=== PATIENT | male | born 1970 | race Caucasian/White ===

== ENCOUNTER → 2018-06-14 | Outpatient (CLI) | payer BC ==
[~2018-06-14] MED LIST: FENO145T32 PO; LISI-170 PO; NAPR-685 PO
[2018-06-14 12:58] LABS: ALANINE AMINOTRANSFERASE 45 U/L (12-78); ALBUMIN 4.4 g/dL (3.4-5.0); ANION GAP 6 mmol/L (5-15); CALCIUM 9.4 mg/dL (8.5-10.1); CHLORIDE 106 mmol/L (98-107); CREATININE 1.21 mg/dL (0.7-1.3)
[2018-06-14 13:00] LABS: ALKALINE PHOSPHATASE 55 U/L (45-117); BILIRUBIN,TOTAL 0.5 mg/dL (0.2-1.0); TOTAL PROTEIN 8.2 g/dL (6.4-8.2)
== END | disposition home or self-care (01) ==
LOC: STAR 08:00
PROVIDERS: ATTEND Orthopaedic Surgery
DX: Z01.818 Encounter for other preprocedural examination (principal); S83.241A Other tear of medial meniscus, current injury, right knee, initial encounter; X58.XXXA Exposure to other specified factors, initial encounter; Y93.89 Activity, other specified; Y92.89 Other specified places as the place of occurrence of the external cause; Y99.8 Other external cause status
CPT/HCPCS: 36415; 80053

== ENCOUNTER 2018-06-20 12:32 | Day surgery (SDC) | payer BC ==
[~2018-06-20] VITALS: Ht 188 cm; Wt 104.0 kg
[~2018-06-20 12:32] MED LIST changes: +LIDOCAINE 1%-EPI 1:100K, 30ML ONE; +ROPIvacaine/PF 0.5%, 30 ML ONE
[2018-06-20 12:55] VITALS: BP 129/89
[2018-06-20] MEDS ORDERED: LACTATED RINGERS 1,000 ML IV SCH (12:55)
[2018-06-20] MEDS ORDERED: PROPOFOL 10 MG/ML, 20ML ONE (14:35)
[2018-06-20] MEDS ORDERED: CEFAZOLIN 1,000 MG ONE (14:35)
[2018-06-20] MEDS ORDERED: FENTANYL PF 250 MCG/5ML ONE (14:36)
[2018-06-20] MEDS ORDERED: MIDAZOLAM 1 MG/ML, 2ML ONE (14:36)
[2018-06-20] MEDS ORDERED: hydrALAzine 20 MG/ML, 1ML IV PRN (15:00)
[2018-06-20] MEDS ORDERED: KETOROLAC 30 MG/1 ML IV PRN (15:00)
[2018-06-20] MEDS ORDERED: DIAZEPAM 5 MG/ML, 2ML IVPush PRN (15:00)
[2018-06-20] MEDS ORDERED: MEPERIDINE/PF 25MG/0.5ML IVPush PRN (15:00)
[2018-06-20] MEDS ORDERED: ALBUTEROL SULFATE 2.5 MG/3 ML NPPB PRN (15:00)
[2018-06-20] MEDS ORDERED: LABETALOL 5MG/ML, 20ML IV PRN (15:00)
[2018-06-20] MEDS ORDERED: OXYcodone 5 MG/5 ML ORAL.SOL UDC PO PRN (15:00)
[2018-06-20] MEDS ORDERED: PROMETHAZINE 25 MG/ML, 1ML IV PRN (15:00)
[2018-06-20] MEDS ORDERED: ACETAMINOPHEN 325 MG TABLET PO PRN (15:00)
[2018-06-20] MEDS ORDERED: OXYcodone 5 MG/5 ML ORAL.SOL UDC ONE (15:26)
[2018-06-20] MEDS ORDERED: FENTANYL PF 100 MCG/2ML ONE (15:31)
[2018-06-20] MEDS: FENTANYL PF 100 MCG/2ML IV PRN ×2 (15:33→15:41)
[2018-06-20] MEDS ORDERED: HYDROmorphone 2 MG/ML, 1ML ONE (15:50)
[2018-06-20] MEDS: HYDROmorphone 2 MG/ML, 1ML IVPush PRN ×2 (15:53→16:01)
== END 2018-06-20 17:40 | disposition home or self-care (01) ==
LOC: OUT 12:32
PROVIDERS: ATTEND Orthopaedic Surgery
DX: S83.281A Other tear of lateral meniscus, current injury, right knee, initial encounter (principal); S83.241A Other tear of medial meniscus, current injury, right knee, initial encounter; M65.861 Other synovitis and tenosynovitis, right lower leg; X58.XXXA Exposure to other specified factors, initial encounter; Y93.89 Activity, other specified; Y92.89 Other specified places as the place of occurrence of the external cause; Y99.8 Other external cause status; Z72.89 Other problems related to lifestyle; Z87.39 Personal history of other diseases of the musculoskeletal system and connective tissue; Z88.0 Allergy status to penicillin
CPT/HCPCS: 29880; J0690; J1170; J2250; J2704; J2795; J3010; J3490; J7120